=== PATIENT | female | born 1975 | race Caucasian/White ===

== ENCOUNTER 2017-07-29 15:30 | Emergency (ER) | payer MEDICARE ==
[~2017-07-29] VITALS: Ht 170.2 cm; Wt 65.9 kg
[2017-07-29 15:31] VITALS: BP 114/56; PULSE 94; TEMP 98.2
[2017-07-29] MEDS ORDERED: PERCOCET 325 MG1 TAB PO (15:54)
[2017-07-29] MEDS ORDERED: PERCOCET 325 MG1 TA2 PO (16:24)
== END 2017-07-29 16:44 | disposition home or self-care (01) ==
LOC: COL.ER 15:30
DX: Z76.0 Encounter for issue of repeat prescription (principal); G35 Multiple sclerosis; M79.671 Pain in right foot; M25.512 Pain in left shoulder; G89.29 Other chronic pain

== ENCOUNTER 2017-08-04 15:44 | Emergency (ER) | payer MEDICARE ==
[~2017-08-04] VITALS: Ht 170.2 cm; Wt 65.0 kg
[~2017-08-04 15:44] MED LIST: PERCOCET 325 MG1 TA2 PO; PERCOCET 325 MG1 TAB PO
[2017-08-04 15:47] VITALS: BP 126/72; PULSE 99; TEMP 98.3
== END 2017-08-04 17:15 | disposition home or self-care (01) ==
LOC: COL.ER 15:44
DX: G89.29 Other chronic pain (principal); M25.562 Pain in left knee; M25.561 Pain in right knee; M25.512 Pain in left shoulder; M25.571 Pain in right ankle and joints of right foot; M54.5 Low back pain; J45.909 Unspecified asthma, uncomplicated; G35 Multiple sclerosis; Z91.14 Patient's other noncompliance with medication regimen